=== PATIENT | male | born 2000 | race Caucasian/White ===

== ENCOUNTER 2024-07-09 10:35 | Day surgery (SDC) | payer BC ==
[2024-07-07 14:16] VITALS: BMI 27.3
[2024-07-09] MEDS ORDERED: PROPOFOL 20 ML ONE (12:18)
[2024-07-09] MEDS ORDERED: fentaNYL 50 mcg/mL 1 mL Vial ONE ×3 (12:18→13:26)
[2024-07-09] MEDS ORDERED: Rocuronium Bromide 10 MG/ML (10ML VIAL) ONE (12:20)
[2024-07-09] MEDS ORDERED: Lidocaine 1% PF 5 ML VIAL ONE (12:20)
[2024-07-09] MEDS ORDERED: Bupivacaine PF 0.5% 30 ML VIAL ONE (12:24)
[2024-07-09] MEDS ORDERED: CEFAZOLIN 2 GM VIAL ONE (12:35)
[2024-07-09] MEDS ORDERED: Sodium Chloride 0.9% 100 ML ONE (12:36)
[2024-07-09] MEDS ORDERED: Dexamethasone 4 mg/ml Vial ONE (13:11)
[2024-07-09] MEDS ORDERED: Ondansetron PF 4 MG/2 ML Vial ONE (13:11)
[2024-07-09] MEDS ORDERED: Ketorolac Tromethamine 30 MG (1 mL) VIAL ONE (13:55)
[2024-07-09] MEDS ORDERED: SUGAMMADEX SODIUM 200 MG/2 ML VIAL ONE (13:55)
[2024-07-09] MEDS ORDERED: Meperidine HCl/PF 25 MG (1 mL) VIAL ONE (14:31)
[2024-07-09] MEDS ORDERED: fentaNYL PF 100 MCG/2 ML SYRINGE ONE ×2 (14:44→15:04)
[2024-07-09] MEDS ORDERED: HYDROmorphone 0.5 MG/0.5 ML SYRINGE ONE ×2 (14:45→15:04)
[2024-07-09] MEDS ORDERED: HYDROcodone/Acetaminophen 5/325 mg Tablet ONE (16:06)
[2024-07-09] MEDS ORDERED: Morphine 2 MG/ML VIAL ONE (16:13)
== END 2024-07-09 17:15 | disposition home or self-care (01) ==
LOC: SDC 10:35
PROVIDERS: ATTEND Orthopaedic Surgery
PROC: 0PSB04Z Reposition Left Clavicle with Internal Fixation Device, Open Approach (ICD-10-PCS; principal; 2024-07-09)
DX: S42.022A Displaced fracture of shaft of left clavicle, initial encounter for closed fracture (principal); X58.XXXA Exposure to other specified factors, initial encounter
CPT/HCPCS: C1713; J0665; J1100; J1170; J1885; J2175; J2272; J2405; J2704; J3010